=== PATIENT | female | born 1965 | race Caucasian/White ===

== ENCOUNTER 2017-07-20 15:08 | Inpatient (IN) | payer MEDICARE, OTHER ==
[~2017-07-20] VITALS: Ht 152.4 cm; Wt 90.7 kg
[2017-07-20] MEDS ORDERED: DOCU-25 PO (15:44)
[2017-07-20] MEDS ORDERED: MAGN400O6 PO (15:44)
[2017-07-20] MEDS ORDERED: BISA10SU8 RC (15:44)
[2017-07-20] MEDS ORDERED: LEVO5TAB13 PO (15:44)
[2017-07-20] MEDS ORDERED: NA P133E RC (15:44)
[2017-07-20] MEDS ORDERED: MAGN250T37 PO (15:44)
[2017-07-20] MEDS ORDERED: CALC-838 PO (15:44)
[2017-07-20] MEDS ORDERED: SIME80TA15 PO (15:44)
[2017-07-20] MEDS ORDERED: CANA100T PO (15:44)
[2017-07-20] MEDS ORDERED: SACC250C6 PO (15:44)
[2017-07-20] MEDS ORDERED: MULT-213 PO (15:44)
[2017-07-20] MEDS ORDERED: ACET-868 PO (15:44)
--- NOTE | 2017-07-20 15:54 | NUR ---
REPORT GIVEN TO MEREDITH SHARMA FOR CONT OF CARE
[2017-07-20 16:15] VITALS: BP 153/98
[2017-07-20 16:20] VITALS: BP 153/98
[2017-07-20] MEDS ORDERED: DEXTROSE 50%-WATER 50 ML DISP.SYRIN IV PRN (17:00)
[2017-07-20] MEDS ORDERED: ONDANSETRON HCL/PF 4 MG/2 ML VIAL IVP PRN (17:00)
[2017-07-20] MEDS ORDERED: MAG HYDROX/AL HYDROX/SIMETH 30 ML UDC PO PRN (17:00)
[2017-07-20] MEDS ORDERED: MAGNESIUM HYDROXIDE 30 ML UDC PO PRN ×2 (17:00)
[2017-07-20] MEDS ORDERED: ZOLPIDEM TARTRATE 5 MG TABLET PO PRN (17:00)
[2017-07-20] MEDS ORDERED: ACETAMINOPHEN 325 MG TABLET PO PRN (17:00)
[2017-07-20] MEDS ORDERED: NA PHOS,M-B/NA PHOS,DI-BA 1 EA ENEMA RC PRN (17:00)
[2017-07-20] MEDS ORDERED: Z GUARD REMEDY 2 OZ OINT TP PRN (17:00)
[2017-07-20] MEDS ORDERED: HYDROCODONE/APAP 5/325MG 1 EACH TABLET PO PRN (17:00)
[2017-07-20] MEDS ORDERED: BISACODYL SUPP (10 MG) 10 MG/SUPP.RECT SUPP.RECT RC PRN (17:00)
[2017-07-20] MEDS: BLOOD SUGAR DIAGNOSTIC 1 EACH STRIP IN SCH ×2 (17:30→21:29)
[2017-07-20] MEDS: SIMETHICONE 80 MG TAB.CHEW PO SCH (17:45)
[2017-07-20] MEDS: INSULIN REGULAR, HUMAN 100 UNIT/ML 3 ML VIAL SQ PRN ×2 (18:39→21:33)
--- NOTE | 2017-07-20 19:01 | NUR ---
RN MS NOTES RECEIVED PATIENT FROM E.R. DEPT, ALERT AND ORIENTED X1, BREATHING EVEN AND UNLABORED, NO DISTRESS NOTED, SKIN ASSESSMENT COMPLETED, PHOTOS TAKEN, RECEIVED ADMISSION ORDERS FROM DR. NIELSEN, ALL ORDERS NOTED AND CARRIED OUT. ALL NEEDS ATTENDED, WILL ENDORSE TO SUPERVISOR SAWMILL FOR LYNNETTE.
--- NOTE | 2017-07-20 19:30 | NUR ---
RN NOTE; RECEIVED PT IN BED AWAKE, NON VERBAL. BREATHING EVENLY. NO SOB. NAD . NO RESP DISTRESS. RA TIM WELL. SATTING ABOVE 93%. NO COUGH. NO S/S OF PAIN OR DISCOMFORT. BED LOW LOCKED. CALL LIGHT WITHIN REACH. WILL CONT TO MONITOR,
[2017-07-20 19:59] VITALS: BP 151/94
[2017-07-20 20:00] VITALS: BP 151/94
[2017-07-21] MEDS: BLOOD SUGAR DIAGNOSTIC 1 EACH STRIP IN SCH ×4 (06:46→21:14)
[2017-07-21] MEDS: INSULIN REGULAR, HUMAN 100 UNIT/ML 3 ML VIAL SQ PRN ×4 (06:47→21:22)
--- NOTE | 2017-07-21 06:55 | NUR ---
RN NOTE; PT IN BED AWAKE BREATHING EVENLY.. NO SOB. NO DISTRESS. NO ACUTE EVENT DURING THE NIGHT, NO S/S OF PAIN OR DISCOMFORT AT THIS TIME. NEEDS ATTENDED. CLEANED AND DRIED. CALL LIGHT WITHIN REACH. WILL CONT TO MONITOR AND WILL ENDORSE TO AM SHIFT FOR LYNNETTE.
[2017-07-21 07:37] LABS: BASOPHILS % (AUTO) 0.3 % (0.0-2.0); EOSINOPHILS # (AUTO) 0.2 /CMM (0.0-0.7); HEMATOCRIT 39 % (33-45); HEMOGLOBIN 12.4 g/dL (11.5-14.8); LYMPHOCYTES # (AUTO) 2.5 /CMM (0.8-4.8); LYMPHOCYTES % (AUTO) 26.9 % (20.0-44.0); MEAN CORPUSCULAR HEMOGLOBIN 22 PG (26.0-33.0); MEAN CORPUSCULAR HGB CONC 32 g/dl (31.0-36.0); MEAN CORPUSCULAR VOLUME 70 fL (82-100); MONOCYTES # (AUTO) 0.5 /CMM (0.1-1.30); MONOCYTES % (AUTO) 5.4 % (2.0-12.0); NEUTROPHILS # (AUTO) 6.1 /CMM (1.8-8.9); NEUTROPHILS % (AUTO) 65.4 % (43.0-81.0); PLATELET COUNT (AUTO) 255 /CMM (150-450); RDW COEFFICIENT OF VARIATION 18.6 (11.5-15.0); RED BLOOD CELL COUNT(AUTO) 5.56 MIL/uL (4.0-5.2); WHITE BLOOD COUNT (AUTO) 9.3 K/uL (4.3-11.0)
[2017-07-21 07:51] LABS: CALCIUM, SERUM 10.3 mg/dL (8.5-10.1); CREATININE 0.9 mg/dL (0.6-1.3); MAGNESIUM 2.1 mg/dL (1.8-2.4); PHOSPHORUS 4.1 mg/dL (2.5-4.9)
[2017-07-21 08:00] VITALS: BP 135/88
[2017-07-21] MEDS: DOCUSATE SODIUM 100 MG CAPSULE PO SCH (08:36)
[2017-07-21] MEDS: CALCIUM CARB 600MG /VIT D 1 EACH TABLET PO SCH (08:36)
[2017-07-21] MEDS: MULTIVIT, IRON, MIN NO. 8, FA 1 TAB PO SCH (08:36)
[2017-07-21] MEDS: MAGNESIUM OXIDE 400 MG TABLET PO SCH (08:36)
[2017-07-21] MEDS: LACTOBACILLUS RHAMNOSUS GG 1 EACH CAP.SPRINK PO SCH ×2 (08:37→17:02)
[2017-07-21] MEDS: cetrizine 10 MG TABLET PO SCH (08:37)
[2017-07-21] MEDS: SIMETHICONE 80 MG TAB.CHEW PO SCH ×2 (08:37→17:02)
[2017-07-21] MEDS ORDERED: Medication Not On Formulary EA (Levocetirizine Dihydrochloride 5 MG) PO SCH (09:00)
[2017-07-21] MEDS ORDERED: SACCHAROMYCES BOULARDII 500 MG PO SCH (09:00)
--- NOTE | 2017-07-21 09:07 | NUR ---
WOUND CARE CONSULT: PT PRESENTS WITH RASH UNDER RT BREAST, PRESENT ON ADMISSION. SACRAL SCARRING NOTED. PT IS INCONTINENT. ALL SKIN PROTECTION MEASURES IN PLACE AND DISCUSSED WITH NURSING STAFF. WILL SEE PRN. LEVINE IN AGREEMENT WITH PLAN OF CARE. Addendum: 07/21/17 at 0908 by CARLOS A FOSTER WNDNU Amended: Links added.
[2017-07-21] MEDS: CLOTRIMAZOLE 1% 15 GM TUBE TP SCH ×2 (14:02→17:27)
--- NOTE | 2017-07-21 15:49 | NUR ---
RN MS NOTES INFORMED DR. NIELSEN PATIENT'S SBP HAS BEEN IN 150S SINCE YESTERDAY, CURRENT BP NOW IS 156/88 HR 78, RECEIVED ORDER TO GIVE AMLODIPINE 5MG NOW AND THEN DAILY. ORDER NOTED AND CARRIED OUT.
[2017-07-21 16:00] VITALS: BP 156/88
[2017-07-21] MEDS: AMLODIPINE BESYLATE 5 MG TABLET PO SCH (17:02)
--- NOTE | 2017-07-21 18:33 | NUR ---
EDITH MS NOTES PATIENT A/OX1, BREATHING EVEN AND UNLABORED, NO SOB NOTED, NO S/SX OF DISTRESS NOTED, NEEDS ATTENDED AND MET, SAFETY MEASURES IN PLACED, CALL LIGHT WITHIN REACH, WILL ENDORSE TO SOCIAL WORKER PALLIATIVE CARE FOR LYNNETTE. Addendum: 07/21/17 at 1836 by MEREDITH GARDNER RN ADDENDUM: WOUND TREATMENT RENDERED. TURNED AND REPOSITIONED. SKIN CARE RENDERED.
[2017-07-21 20:00] VITALS: BP 129/79
--- NOTE | 2017-07-22 06:32 | NUR ---
MS RN NOTES AWAKE & ALERT. NOT IN ANY DISTRESS. NO SOB NOTED. DENIES ANY PAIN OR DISCOMFORT AT THIS TIME. AM CARE DONE. MONITORED ACCORDINGLY. CALL LIGHT WITHIN REACH. BED IN LOWEST POSITION. SR UP X 3 FOR SAFETY WITH BED ALARM ON. WILL ENDORSE TO NEXT SHIFT.
[2017-07-22] MEDS: BLOOD SUGAR DIAGNOSTIC 1 EACH STRIP IN SCH ×4 (06:45→21:08)
[2017-07-22] MEDS: INSULIN REGULAR, HUMAN 100 UNIT/ML 3 ML VIAL SQ PRN ×3 (06:46→21:31)
[2017-07-22 08:00] VITALS: BP 134/80
[2017-07-22] MEDS: SIMETHICONE 80 MG TAB.CHEW PO SCH ×2 (08:11→16:18)
[2017-07-22] MEDS: LACTOBACILLUS RHAMNOSUS GG 1 EACH CAP.SPRINK PO SCH ×2 (08:11→16:18)
[2017-07-22] MEDS: cetrizine 10 MG TABLET PO SCH (08:11)
[2017-07-22] MEDS: MAGNESIUM OXIDE 400 MG TABLET PO SCH (08:12)
[2017-07-22] MEDS: MULTIVIT, IRON, MIN NO. 8, FA 1 TAB PO SCH (08:12)
[2017-07-22] MEDS: CALCIUM CARB 600MG /VIT D 1 EACH TABLET PO SCH (08:12)
[2017-07-22] MEDS: DOCUSATE SODIUM 100 MG CAPSULE PO SCH (08:12)
[2017-07-22] MEDS: AMLODIPINE BESYLATE 5 MG TABLET PO SCH (08:12)
[2017-07-22] MEDS: CLOTRIMAZOLE 1% 15 GM TUBE TP SCH ×2 (08:12→16:19)
--- NOTE | 2017-07-22 17:52 | NUR ---
M/S RN - Notes Patient remain stable, no SOB, not in any form of distress, tolerating room air, blood sugar controlled. Good skin care rendered. Fall and aspiration precautions maintained. Anticipate discharge back to SNF tomorrow if she continues to be stable. Will continue with current treatment plan.
[2017-07-22 20:00] VITALS: BP 148/89
[2017-07-23] MEDS: BLOOD SUGAR DIAGNOSTIC 1 EACH STRIP IN SCH ×4 (06:11→21:32)
--- NOTE | 2017-07-23 07:33 | NUR ---
MS/RN Patient received Patient received form overnight cashier. No shortness of breath, room air saturation >92%. Does not appear in any pain at this time. Call light within reach, side rail X3 in upright position. Will continue to monitor and ensure safety.
[2017-07-23 08:00] VITALS: BP 160/81
[2017-07-23] MEDS: CALCIUM CARB 600MG /VIT D 1 EACH TABLET PO SCH (08:45)
[2017-07-23] MEDS: LACTOBACILLUS RHAMNOSUS GG 1 EACH CAP.SPRINK PO SCH ×2 (08:45→17:16)
[2017-07-23] MEDS: SIMETHICONE 80 MG TAB.CHEW PO SCH ×2 (08:46→17:16)
[2017-07-23] MEDS: cetrizine 10 MG TABLET PO SCH (08:46)
[2017-07-23] MEDS: MAGNESIUM OXIDE 400 MG TABLET PO SCH (08:46)
[2017-07-23] MEDS: AMLODIPINE BESYLATE 5 MG TABLET PO SCH (08:46)
[2017-07-23] MEDS: DOCUSATE SODIUM 100 MG CAPSULE PO SCH (08:46)
[2017-07-23] MEDS: CLOTRIMAZOLE 1% 15 GM TUBE TP SCH ×2 (08:47→17:16)
[2017-07-23] MEDS: MULTIVIT, IRON, MIN NO. 8, FA 1 TAB PO SCH (08:47)
--- NOTE | 2017-07-23 09:15 | NUR ---
MS/RN Medications Morning medications administered as ordered. Able to swallow meds whole.
--- NOTE | 2017-07-23 15:02 | NUR ---
MS/RN Possible discharge Per medical case manager, patient to be discharged back to [facility] today. Exit care prepared, medical record copied.
[2017-07-23 16:00] VITALS: BP 161/81
--- NOTE | 2017-07-23 17:15 | NUR ---
MS/RN Blood sugar Blood sugar at 5p 122, no coverage per sliding scale.
--- NOTE | 2017-07-23 17:53 | NUR ---
MS/RN Patient filler picker Patient scheduled for filler picker at 2130. All paperwork prepared.
--- NOTE | 2017-07-23 19:22 | NUR ---
RN NOTES IN BED RESTING COMFORTABLY. A/O X 1, PT IN STABLE CONDITION, NO S/S OF DISTRESS. SAFETY MEASURES ARE IN PLACE, CALL LIGHT IS IN REACH. WILL CONTINUE TO MONITOR. FOR DRYWALL TAPER TODAY
[2017-07-23 20:00] VITALS: BP 144/97
[2017-07-23] MEDS: INSULIN REGULAR, HUMAN 100 UNIT/ML 3 ML VIAL SQ PRN (21:35)
--- NOTE | 2017-07-23 22:40 | NUR ---
PATIENT DISCHARGE PATIENT LEFT AT 2240 VIA GURNEY WITH 2 EMT'S GAVE REPORT TO CELINA 538, PATIENT ON STABLE CONDITION NO S/S OF DISTRESS NOTED, NO CHEST PAIN, NO NAUSEA AND VOMITING, VS STABLE, TOLERATING ROOM AIR, 98% HEALTH EDUCATION AND EXIT CARE WAS PROVIDED, EDUCATION ABOUT DISEASE AND RISKS AND BENEFITS FOLLOW UP CARE PROVIDED, PT NEED FURTHER INSTRUCTIONS. DOCUMENTS WAS PROVIDED TO PARAMEDICS. CONTINUE MEDICATION PRESCRIPTION WAS PROVIDED. NO IV HEPLOCK, REMOVED BY RN DAY SHIFT. NO BELONGINGS. GAVE REPORT TO LISA SHARMA, [facility].
--- NOTE | 2017-07-23 22:54 | NUR ---
RESPONSIBLE REPUBLICAN NOTIFIED SPOKE TO SUKUMAR LEACH, BROTHER ABOUT DISCHARGE BOTHER APPRECIATIVE
== END 2017-07-23 22:50 | DRG 917 ==
LOC: EDBD 15:09 → ER 15:09 → MEDSG2 17:06
PROVIDERS: ADMIT Internal Medicine; ATTEND Internal Medicine
DX: T59.811A Toxic effect of smoke, accidental (unintentional), initial encounter (principal); E43 Unspecified severe protein-calorie malnutrition; E66.01 Morbid (severe) obesity due to excess calories; J70.5 Respiratory conditions due to smoke inhalation; R06.03 Acute respiratory distress; Y92.89 Other specified places as the place of occurrence of the external cause; E11.9 Type 2 diabetes mellitus without complications; J30.9 Allergic rhinitis, unspecified; Z68.39 Body mass index [BMI] 39.0-39.9, adult; Y92.129 Unspecified place in nursing home as the place of occurrence of the external cause
CPT/HCPCS: 36415; 80048-TC; 82962-TC; 83735-TC; 84100-TC; 85025-TC; 87081-TC; A4606; J1815; Z7610